=== PATIENT | male | born 1950 | race Caucasian/White ===

== ENCOUNTER 2022-09-29 14:44 | Inpatient (IN) | payer MEDICARE ==
[~2022-09-29] VITALS: Ht 175.3 cm; Wt 74.4 kg
--- NOTE | 2022-09-29 15:00 | NUR ---
[id number] HOME FOR COUGH AND CONGESTION W/ FEVER THAT STARTED THIS MORNING MOTRIN 600MG GIVEN PRIOR TO TRANSFER
--- NOTE | 2022-09-29 15:08 | NUR ---
established iv line left ac 20 g .
--- NOTE | 2022-09-29 15:10 | NUR ---
BLOOD DRAWN, SWAB FOR COVID19 AND RAPID INFLUENZA SENT TO LAB
[2022-09-29] MEDS ORDERED: PIPERACILLIN /TAZOBACTAM 3.375 G VIAL IV ONE (15:29)
[2022-09-29] MEDS ORDERED: DEXAMETHASONE SOD PHOSPHATE 10 MG/ML VIAL ONE (15:29)
[2022-09-29] MEDS ORDERED: VANCOMYCIN 1 GM VIAL ONE (15:29)
[2022-09-29] MEDS ORDERED: DEXAMETHASONE SOD PHOSPHATE 10 MG/ML VIAL IV ONE (15:30)
[2022-09-29] MEDS ORDERED: PIPERACILLIN /TAZOBACTAM 3.375 G in IV D5W 50 ML IV ONE (15:30)
[2022-09-29] MEDS ORDERED: VANCOMYCIN 1 GM in IV D5W 250 ML IV ONE (15:30)
[2022-09-29] MEDS ORDERED: IV NS 0.9% 1,000 ML BAG IV ONE (15:30)
--- NOTE | 2022-09-29 15:36 | NUR ---
BLOODSUGAR 121 AT THIS TIME NOTIFIED
[2022-09-29 15:44] LABS: BASOPHILS % (AUTO) 0.1 % (0.0-2.0); EOSINOPHILS % (AUTO) 0.3 % (0.0-6.0); HEMATOCRIT 39 % (39-51); LYMPHOCYTES # (AUTO) 0.5 K/uL (0.8-4.8); LYMPHOCYTES % (AUTO) 7.4 % (20.0-44.0); MEAN CORPUSCULAR HGB CONC 33 g/dl (31.0-36.0); MEAN CORPUSCULAR VOLUME 92 fL (80-96); MONOCYTES # (AUTO) 0.4 K/uL (0.1-1.30); MONOCYTES % (AUTO) 5.6 % (2.0-12.0); NEUTROPHILS # (AUTO) 6.2 K/uL (1.8-8.9); NEUTROPHILS % (AUTO) 86.6 % (43.0-81.0); PLATELET COUNT (AUTO) 188 K/uL (150-450); RED BLOOD CELL COUNT(AUTO) 4.23 MIL/uL (4.5-6.0); WHITE BLOOD COUNT (AUTO) 7.1 K/uL (4.3-11.0)
[2022-09-29 15:45] LABS: ABG BASE EXCESS -1.3 mmol/L; ABG PCO2 26.1 mmHg (35.0-45.0); ABG PH 7.511 (7.350-7.450); ABG PO2 72.4 mmHg (75.0-100.0); COHb 0.3 % (0.5-1.5); MetHb 0.3 % (0.0-1.5); O2Hb 94.3 % (94.0-97.0); SITE, ABG Right Radial
[2022-09-29] MEDS ORDERED: ACETAMINOPHEN ES 500 MG TABLET ONE (15:49)
[2022-09-29 15:53] LABS: CALCIUM, SERUM 8.5 mg/dL (8.5-10.1); CARBON DIOXIDE 24 mmol/L (21-32); CHLORIDE 102 mmol/L (98-107); CREATININE 1.2 mg/dL (0.6-1.3); GLUCOSE 114 mg/dL (74-106); POTASSIUM 4.1 mmol/L (3.5-5.1); SODIUM SERUM 139 mmol/L (136-145); UREA NITROGEN, BLOOD 12 mg/dL (7-18)
[2022-09-29] MEDS ORDERED: CARV25TA2 PO (15:54)
[2022-09-29] MEDS ORDERED: POTA99TA14 PO (15:54)
[2022-09-29] MEDS ORDERED: FURO40TA5 PO (15:54)
[2022-09-29] MEDS ORDERED: ARGI1POW13 PO (15:54)
[2022-09-29] MEDS ORDERED: UBID50TA3 PO (15:54)
[2022-09-29] MEDS ORDERED: THIA100T70 PO (15:54)
[2022-09-29] MEDS ORDERED: ACETAMINOPHEN ES 500 MG TABLET PO ONE (16:00)
[2022-09-29 16:07] LABS: ALANINE AMINOTRANSFERASE 26 U/L (12-78); ALBUMIN 3.7 g/dL (3.4-5.0); ALKALINE PHOSPHATASE 93 U/L (46-116); ASPARTATE AMINOTRANSFERASE 22 U/L (15-37); BILIRUBIN,DIRECT 0.6 mg/dL (0.0-0.2); BILIRUBIN,TOTAL 1.9 mg/dL (0.2-1.0); TOTAL PROTEIN, SERUM 6.6 g/dL (6.4-8.2)
--- NOTE | 2022-09-29 16:08 | NUR ---
MOVE SHEET SUBMITTED.
--- NOTE | 2022-09-29 16:10 | NUR ---
CRITICAL LAB LACTIC ACID 3.1 NOTIFIED
[2022-09-29] MEDS ORDERED: AZITHROMYCIN 500 MG in IV D5W 250 ML IV ONE (16:30)
--- NOTE | 2022-09-29 16:59 | NUR ---
[facility] CALLED DIRECTOR DIGITAL SALES PAGED.
[2022-09-29 17:56] LABS: BAND % (MANUAL) 8 % (0.0-5.0); LYMPHOCYTES % (MANUAL) 5 % (16-48); MONOCYTES % (MANUAL) 2 % (0-11.0); NEUTROPHILS % (MANUAL) 85 (42-76)
--- NOTE | 2022-09-29 18:14 | NUR ---
GOT BED 102
--- NOTE | 2022-09-29 18:38 | NUR ---
REPORT GIVEN TO ARIAS RN ROOM 102 FOR GABO
[2022-09-29] MEDS ORDERED: Z GUARD REMEDY 4 OZ OINT TP PRN (19:00)
[2022-09-29] MEDS ORDERED: MAG HYDROX/AL HYDROX/SIMETH 30 ML UDC PO PRN (19:00)
[2022-09-29] MEDS ORDERED: MAGNESIUM HYDROXIDE 30 ML UDC PO PRN (19:00)
[2022-09-29] MEDS ORDERED: ONDANSETRON HCL/PF 4 MG/2 ML VIAL IVP PRN (19:00)
[2022-09-29 19:07] LABS: BILIRUBIN,URINE NEGATIVE (NEGATIVE); COLOR,URINE YELLOW (YELLOW); LEUKOCYTE ESTERASE ,URINE NEGATIVE (NEGATIVE); NITRITE, URINE NEGATIVE (NEGATIVE); PH,URINE 6.5 (5.0-8.0); PROTEIN,URINE NEGATIVE (NEGATIVE); UGLUCOSE NEGATIVE (NEGATIVE); UROBILINOGEN,URINE 0.2 EU/dL (0.2)
--- NOTE | 2022-09-29 19:56 | NUR ---
RN OPENING NOTE PT A&OX4. RESPIRATIONS EVEN AND UNLABORED ON NC AT 2 LPM. HOB ELEVATED. SKIN IS WARM AND DRY. NO WOUNDS PRESENT. L AC 18G INTACT AND RUNNING NS TKO. PT EDUCATED ON PLAN OF CARE FOR TONIGHT. PT IS VEGAN AND HAS GLUTEN FREE DIET. ADJUSTMENTS MADE TO DIET ORDER PER PT REQUEST. NO ACUTE SIGNS OF DISTRESS. PT ABLE TO AMBULATE WITH STRONG STEADY GAIT. BED LOCKED AND AT LOWEST LEVEL WITH 2 RAILS UP. CALL LIGHT WITHIN REACH.
[2022-09-29 20:00] VITALS: BP 118/71
[2022-09-29] MEDS ORDERED: ENOXAPARIN SODIUM 40 MG/0.4 ML DISP.SYRIN SQ SCH (20:00)
[2022-09-29 20:17] LABS: BACTERIA,URINE None seen /HPF (None Seen); SQUAMOUS EPITHELIAL CELL,UR 0-2 /HPF (None Seen); WBC,URINE 0-2 /HPF (0-3)
[2022-09-29] MEDS: ZOSYN IVPB 3.375 G in IV D5W 50ml IV SCH (22:18)
[2022-09-30] VITALS: BP 122/82
[2022-09-30] MEDS: ZOSYN IVPB 3.375 G in IV D5W 50ml IV SCH (03:13)
[2022-09-30 04:00] VITALS: BP 102/55
[2022-09-30] MEDS: VANCOMYCIN 0.75 GM in IV D5W 250 ML IV SCH ×2 (04:14→16:08)
--- NOTE | 2022-09-30 05:40 | NUR ---
0932 THEE ARIAS MADE AWARE THAT PATIENT HAD 3 EPISODES OF COUGHING UP BLOODY SPUTUM WITH ORDERS MADE. PATIENT WAS MOVED TO [facility] FOR TB ISOLATION ORDERED.
--- NOTE | 2022-09-30 05:50 | NUR ---
RN NOTE SPUTUM CX COLLECTED AND PLACED IN FRIDGE.
[2022-09-30 06:01] LABS: BASOPHILS % (AUTO) 0.2 % (0.0-2.0); HEMATOCRIT 35 % (39-51); HEMOGLOBIN 11.5 g/dL (13.5-17.5); LYMPHOCYTES # (AUTO) 0.3 K/uL (0.8-4.8); MEAN CORPUSCULAR HGB CONC 33 g/dl (31.0-36.0); MEAN CORPUSCULAR VOLUME 93 fL (80-96); MONOCYTES # (AUTO) 0.4 K/uL (0.1-1.30); MONOCYTES % (AUTO) 5.7 % (2.0-12.0); NEUTROPHILS # (AUTO) 6.2 K/uL (1.8-8.9); NEUTROPHILS % (AUTO) 90.1 % (43.0-81.0); PLATELET COUNT (AUTO) 128 K/uL (150-450); RED BLOOD CELL COUNT(AUTO) 3.74 MIL/uL (4.5-6.0); WHITE BLOOD COUNT (AUTO) 6.9 K/uL (4.3-11.0)
[2022-09-30 06:11] LABS: CALCIUM, SERUM 8.4 mg/dL (8.5-10.1); CREATININE 1.1 mg/dL (0.6-1.3); MAGNESIUM 2.2 mg/dL (1.8-2.4); PHOSPHORUS 3.2 mg/dL (2.5-4.9); POTASSIUM 3.7 mmol/L (3.5-5.1)
--- NOTE | 2022-09-30 07:02 | NUR ---
RN CLOSING NOTE PT A&OX4. SKIN IS WARM AND DRY. RR EVEN AND UNLABORED ON 2 LPM NC. LAC 18 G INTACT AND SL. NO ACUTE SIGNS OF DISTRESS. ANSWERED PT'S QUESTIONS REGARDING PNA AND TB. PT VERBALIZED UNDERSTANDING AND HAS NO OTHER NEEDS AT THIS TIME. PT IS IN ROOM 101 AND AIRBORNE ISOLATION PRECAUTIONS IN PLACE. PT ABLE TO AMBULATE TO RESTROOM WITHOUT ASSISTANCE WITH STRONG STEADY GAIT. BED LOCKED AND AT LOWEST LEVEL AND CALL LIGHT WITHIN REACH.
--- NOTE | 2022-09-30 07:25 | NUR ---
ECONOMIC RESEARCH ASSISTANT OPENING NOTE RECEIVED PT A&OX4. ABLE TO MAKE NEEDS KNOWN, NOT IN ANY FORM OF DISTRESS, ON NC AT 2 LPM. HOB ELEVATED, NO S/SX OF RESPIRATORY DISTRESS, NO COMPLAINTS OF PAIN NOR DISCOMFORT. IV ACCESS ON LAC G#18, SALINE LOCKED, PATENT, FLUSHING WELL. PATIENT REPORTS THAT THE COUGHING OF BLOOD HAS STOPPED FOR NOW. SAFETY MEASURES IN PLACE: BED LOWEST AND LOCKED POSITION, 2 SIDE RAILS UP, CALL LIGHT AND TRAY TABLE WITHIN REACH. WILL CONTINUE TO MONITOR. Addendum: 09/30/22 at 1217 by IVANNA JIN RN TELEMONITORING SHOWS - SINUS RHYTHM AT 84 BPM
[2022-09-30 08:00] VITALS: BP 108/69
[2022-09-30] MEDS: PANTOPRAZOLE 40 MG TABLET.DR PO SCH (08:45)
[2022-09-30] MEDS: ACETAMINOPHEN 325 MG TABLET PO PRN (09:04)
[2022-09-30] MEDS: LEVOFLOXACIN 750 MG /D5W 150ML 150 ML IV SCH (11:16)
[2022-09-30 12:00] VITALS: BP 104/69
[2022-09-30] MEDS: PIPERACILLIN /TAZOBACTAM 3.375 G in IV D5W 100 ML IV SCH ×2 (12:54→21:39)
[2022-09-30 16:00] VITALS: BP 108/69
--- NOTE | 2022-09-30 17:04 | NUR ---
RN NOTES - MEDICATION [facility] CALLED TO ASK MD TO RECONCILE MEDS, MESSAGED AMANDA TAPIA
--- NOTE | 2022-09-30 19:25 | NUR ---
GAS SINGER CLOSING NOTES PT A&OX4. ABLE TO MAKE NEEDS KNOWN, NOT IN ANY FORM OF DISTRESS, STILL ON NC AT 2 LPM. DENIES PAIN NOR DISCOMFORT. IV ACCESS ON LAC G#18, SALINE LOCKED, PATENT, FLUSHING WELL. TELEMONITOR SHOWING AFIB CONTROLLED AT 90 BPM. ALL NEEDS MET, ALL DUE MEDS GIVEN. SAFETY MEASURES MAINTAINED: BED LOWEST AND LOCKED POSITION, 2 SIDE RAILS UP, CALL LIGHT AND TRAY TABLE WITHIN REACH. ENDORSED TO THE SEWING MACHINE MECHANIC NURSE.
--- NOTE | 2022-09-30 19:30 | NUR ---
RECEIVED PT A&OX4. ON NC AT 2 LPM. HOB ELEVATED, NO S/SX OF RESPIRATORY DISTRESS, NO COMPLAINTS OF PAIN NOR DISCOMFORT. IV ACCESS ON LAC G#18, SALINE LOCKED. URINAL AT BEDSIDE. SAFETY MEASURES IN PLACE. WILL CONTINUE PLAN OF CARE.
[2022-09-30 20:00] VITALS: BP 108/69
[2022-10-01] VITALS: BP 117/76
--- NOTE | 2022-10-01 00:58 | NUR ---
WORK FORCE ADVISOR NOTE PT NOTED DESATING ON 02 6 L VIA SIMPLE MASK IN HIGH TREJO POSITION. CHANGED TO NRB MASK AT 15 L O2 SAT CAME BACK UP TO 97%. INFORMED THEE ARIAS AND RECEIVED NEW ORDER, ORDER NOTED AND CARRIED OUT. NURSE MAGUIRE ALSO INFORMED TO FOLLOW UP.
--- NOTE | 2022-10-01 02:00 | NUR ---
MD and Charge nurse was notified that the pt is asking for his home meds to be reconciled. acknowledged. Will endorse to morning shift nurse.
[2022-10-01] MEDS: ZOLPIDEM TARTRATE 5 MG TABLET PO PRN ×2 (02:16→21:11)
[2022-10-01] MEDS: VANCOMYCIN 0.75 GM in IV D5W 250 ML IV SCH (03:16)
[2022-10-01 04:00] VITALS: BP 109/71
[2022-10-01] MEDS: PIPERACILLIN /TAZOBACTAM 3.375 G in IV D5W 100 ML IV SCH ×2 (04:05→13:32)
--- NOTE | 2022-10-01 06:24 | NUR ---
Home meds requested by pt to be reconciled needs to be reviewed by Cardio specialist: Carvedilol 25mg, Furosemide 40 mg, Potassium gluconate 99mg. Will endorse to morning shift.
[2022-10-01 06:29] LABS: BASOPHILS % (AUTO) 0.1 % (0.0-2.0); HEMATOCRIT 33 % (39-51); HEMOGLOBIN 10.8 g/dL (13.5-17.5); LYMPHOCYTES # (AUTO) 0.5 K/uL (0.8-4.8); MEAN CORPUSCULAR HGB CONC 33 g/dl (31.0-36.0); MEAN CORPUSCULAR VOLUME 93 fL (80-96); MONOCYTES # (AUTO) 0.7 K/uL (0.1-1.30); MONOCYTES % (AUTO) 7.9 % (2.0-12.0); NEUTROPHILS # (AUTO) 7.4 K/uL (1.8-8.9); PLATELET COUNT (AUTO) 140 K/uL (150-450); RED BLOOD CELL COUNT(AUTO) 3.51 MIL/uL (4.5-6.0); WHITE BLOOD COUNT (AUTO) 8.6 K/uL (4.3-11.0)
--- NOTE | 2022-10-01 06:30 | NUR ---
PT A&OX4. ON NC AT 2 LPM. HOB ELEVATED, NO S/SX OF RESPIRATORY DISTRESS, NO COMPLAINTS OF PAIN NOR DISCOMFORT. IV ACCESS ON LAC G#18, SALINE LOCKED. URINAL AT BEDSIDE. DUE MEDS GIVEN. SAFETY MEASURES MAINTAINED. WILL ENDORSE TO NEXT NURSE ON DUTY FOR CONTINUITY OF CARE.
[2022-10-01 06:50] LABS: CALCIUM, SERUM 8.2 mg/dL (8.5-10.1); CARBON DIOXIDE 24 mmol/L (21-32); CHLORIDE 106 mmol/L (98-107); CREATININE 1.2 mg/dL (0.6-1.3); GLUCOSE 154 mg/dL (74-106); MAGNESIUM 2.2 mg/dL (1.8-2.4); PHOSPHORUS 2.8 mg/dL (2.5-4.9); POTASSIUM 3.6 mmol/L (3.5-5.1); SODIUM SERUM 139 mmol/L (136-145); UREA NITROGEN, BLOOD 21 mg/dL (7-18)
--- NOTE | 2022-10-01 07:30 | NUR ---
RN Opening Note Patient AOx4 able to express his concerns. Patient reports and shows no signs of distress or discomfort. IV line with no signs of infiltration. Patient made aware of plan of care and verbalized understanding. Will monitor throughout shift, administer medications as scheduled and provide care as needed. All safety precautions taken, call light and table within reach, bed at lowest position.
[2022-10-01 08:00] VITALS: BP 119/81
[2022-10-01] MEDS: PANTOPRAZOLE 40 MG TABLET.DR PO SCH (08:18)
[2022-10-01] MEDS: THIAMINE HCL 100 MG TABLET PO SCH (08:18)
[2022-10-01] MEDS ORDERED: UBIDECARENONE 100 MG PO SCH (09:00)
[2022-10-01] MEDS ORDERED: Medication Not On Formulary EA (Arginine/Ascorbate Sod/Vite AC (Arginaid Powder) 1 EACH) PO SCH (09:00)
[2022-10-01] MEDS: LEVOFLOXACIN 750 MG /D5W 150ML 150 ML IV SCH (11:13)
[2022-10-01 12:00] VITALS: BP 129/78
[2022-10-01] MEDS: ACETAMINOPHEN 325 MG TABLET PO PRN ×2 (13:40→21:11)
[2022-10-01] MEDS: FUROSEMIDE 40 MG TABLET PO SCH (14:22)
[2022-10-01] MEDS: CARVEDILOL 12.5 MG TABLET PO SCH ×2 (14:22→16:16)
[2022-10-01 16:00] VITALS: BP 115/73
[2022-10-01] MEDS ORDERED: VANCOMYCIN 0.75 GM in IV NS 0.9% 250 ML IV SCH (16:00)
[2022-10-01] MEDS: VANCOMYCIN 1 GM in IV D5W 250 ML IV SCH (16:15)
--- NOTE | 2022-10-01 18:14 | NUR ---
RN Closing Note Patient AOx4 able to express his own concerns. Patient remained safe throughout shift, all safety precautions taken. Medications administered as prescribed and care provided as needed. Educated patient on importance of monitoring fluid intake. Patient states he has holistic physicians who he usually sees for out patient services. All safety precautions taken, call light and table within reach, bed at lowest position. Will endorse to night nurse for continuity of care.
[2022-10-01] MEDS: PIPERACILLIN /TAZOBACTAM 3.375 G in IV NS 0.9% 100 ML IV SCH (20:50)
[2022-10-01 22:00] VITALS: BP 104/50
[2022-10-02 00:29] VITALS: BP 113/65
[2022-10-02] MEDS: VANCOMYCIN 1 GM in IV D5W 250 ML IV SCH ×2 (03:05→17:35)
[2022-10-02] MEDS: PIPERACILLIN /TAZOBACTAM 3.375 G in IV NS 0.9% 100 ML IV SCH ×3 (04:37→21:00)
[2022-10-02 05:12] VITALS: BP 112/53
[2022-10-02 06:51] LABS: BASOPHILS % (AUTO) 0.2 % (0.0-2.0); EOSINOPHILS % (AUTO) 0.4 % (0.0-6.0); HEMATOCRIT 31 % (39-51); HEMOGLOBIN 10.5 g/dL (13.5-17.5); LYMPHOCYTES # (AUTO) 0.7 K/uL (0.8-4.8); LYMPHOCYTES % (AUTO) 11.5 % (20.0-44.0); MEAN CORPUSCULAR HGB CONC 34 g/dl (31.0-36.0); MEAN CORPUSCULAR VOLUME 92 fL (80-96); MONOCYTES # (AUTO) 0.5 K/uL (0.1-1.30); MONOCYTES % (AUTO) 8.5 % (2.0-12.0); NEUTROPHILS # (AUTO) 5.1 K/uL (1.8-8.9); NEUTROPHILS % (AUTO) 79.4 % (43.0-81.0); PLATELET COUNT (AUTO) 140 K/uL (150-450); RED BLOOD CELL COUNT(AUTO) 3.39 MIL/uL (4.5-6.0); WHITE BLOOD COUNT (AUTO) 6.5 K/uL (4.3-11.0)
[2022-10-02 07:08] LABS: CALCIUM, SERUM 8.1 mg/dL (8.5-10.1); CREATININE 1.1 mg/dL (0.6-1.3); PHOSPHORUS 3.3 mg/dL (2.5-4.9); POTASSIUM 3.3 mmol/L (3.5-5.1)
[2022-10-02 08:00] VITALS: BP 120/74
[2022-10-02] MEDS: PANTOPRAZOLE 40 MG TABLET.DR PO SCH (08:07)
[2022-10-02] MEDS: THIAMINE HCL 100 MG TABLET PO SCH (08:07)
[2022-10-02] MEDS: CARVEDILOL 12.5 MG TABLET PO SCH ×2 (08:07→17:35)
[2022-10-02] MEDS: FUROSEMIDE 40 MG TABLET PO SCH (08:07)
[2022-10-02] MEDS: ACETAMINOPHEN 325 MG TABLET PO PRN (08:31)
[2022-10-02] MEDS ORDERED: POTASSIUM CHLORIDE 20 MEQ TAB.PRT.SR PO ONE (09:00)
[2022-10-02] MEDS: SPIRONOLACTONE 25 MG TABLET PO SCH (09:11)
[2022-10-02] MEDS: LEVOFLOXACIN 750 MG /D5W 150ML 150 ML IV SCH (11:46)
[2022-10-02 12:00] VITALS: BP 108/63
[2022-10-02] MEDS ORDERED: SACU1TAB7 PO (12:54)
[2022-10-02] MEDS ORDERED: LEVO250T59 PO (12:54)
[2022-10-02] MEDS ORDERED: SPIR25TA6 PO (12:54)
[2022-10-02 16:00] VITALS: BP 108/71
--- NOTE | 2022-10-02 19:05 | NUR ---
CONDUCTOR FREIGHT OPENING NOTE RECEIVED PT SITTING IN BED, ALERT AND ORIENTED; A O X 4. PATIENT IS ON 3 LPM OXYGEN VIA NC, O2 SAT IS 98%. TOLERATED WELL; NO S/S OF SOB OR DISTRESS. PATIENT DENIES OF HAVING PAIN. IV ACCESS IS ON L AC #18G, SALINE LOCKED, PATENT, FLUSHING WITH 10 CC NS. PATENT AND INTACT. PATIENT HAS DRY COUGH AND PRN MEDICATION ORDERED BY THE MD AND WAITING FOR PHARMACY FOR APPROVAL. PATIENT IS ON EXTERNAL TELE MONITOR, SHOWING THE RHYTHM IS SR AT 90S AT REST AND 120S WHEN HE WALKS AROUND. SAFETY MEASURES IN PLACE: BED IN LOWEST AND LOCKED POSITION; SIDE RAILS UP X 2; CALL LIGHT AND TRAY TABLE WITHIN REACH. WILL CONTINUE MONITORING THE PATIENT AND PROVIDE THE CARE PATIENT NEEDS.
--- NOTE | 2022-10-02 19:17 | NUR ---
RN Closing Note Patient AOx4 able to make needs known. Patient breathing on 3L nc o2 sat of 98%. Tele reading ST with HR of 108. All safety precautions in place, call light and table within reach, bed at lowest position. Will endorse to night nurse for continuity of care.
[2022-10-02 20:00] VITALS: BP 96/58
[2022-10-02] MEDS: BENZONATATE 100 MG CAPSULE PO PRN (21:03)
--- NOTE | 2022-10-02 21:30 | NUR ---
MEDICAL LABORATORY TECHNICIANS NOTE PATIENT IS HAVING DRY COUGH; PRN MEDICATION FOR COUGH WAS GIVEN TO THE PATIENT ORALLY PER MD ORDER.
[2022-10-02] MEDS: ZOLPIDEM TARTRATE 5 MG TABLET PO PRN (22:00)
--- NOTE | 2022-10-02 22:10 | NUR ---
AIRCRAFT STRUCTURAL FITTER NOTE PATIENT STATED THAT HE NEEDED THE SLEEPING PILLS SO HE WAS ABLE TO GO TO SLEEP. PRN MEDICATION AMBIEN WAS GIVEN T9O THE PATIENT ORALLY PER MD ORDER.
[2022-10-03] VITALS: BP 108/69
[2022-10-03] MEDS: VANCOMYCIN 1 GM in IV D5W 250 ML IV SCH ×2 (03:45→16:12)
[2022-10-03 04:00] VITALS: BP 114/77
[2022-10-03] MEDS: PIPERACILLIN /TAZOBACTAM 3.375 G in IV NS 0.9% 100 ML IV SCH ×3 (04:54→20:47)
--- NOTE | 2022-10-03 07:39 | NUR ---
AUTOMOBILE ASSEMBLY SUPERVISOR CLOSING NOTE PT IS SLEEPING IN BED, EASILY BEING AROUSED. HE IS ALERT AND ORIENTED; A O X 4. PATIENT IS ON 3 LPM OXYGEN VIA NC, O2 SAT IS 98%. TOLERATED WELL; NO S/S OF SOB OR DISTRESS. PATIENT DENIES OF HAVING PAIN. IV ACCESS IS ON L AC #18G, SALINE LOCKED, PATENT AND INTACT. THROUGH THE SHIFT, PRN MEDICATION GIVEN TO THE PATIENT PER PATIENT'S REQUEST, CONDITION AND MD ORDERS. PATIENT IS ON EXTERNAL TELE MONITOR, SHOWING THE RHYTHM IS SR AT 90S AT REST AND 120S WHEN HE WALKS AROUND. SAFETY MEASURES IN PLACE: BED IN LOWEST AND LOCKED POSITION; SIDE RAILS UP X 2; CALL LIGHT AND TRAY TABLE WITHIN REACH. WILL ENDORSE THE NEXT SHIFT NURSE FOR CONTINUING PATIENT CARE.
[2022-10-03 08:00] VITALS: BP 118/59
[2022-10-03 08:09] LABS: CALCIUM, SERUM 8.9 mg/dL (8.5-10.1); CARBON DIOXIDE 26 mmol/L (21-32); CHLORIDE 103 mmol/L (98-107); CREATININE 1.1 mg/dL (0.6-1.3); GLUCOSE 82 mg/dL (74-106); POTASSIUM 3.3 mmol/L (3.5-5.1); SODIUM SERUM 141 mmol/L (136-145); UREA NITROGEN, BLOOD 16 mg/dL (7-18)
[2022-10-03] MEDS: SPIRONOLACTONE 25 MG TABLET PO SCH (09:50)
[2022-10-03] MEDS: THIAMINE HCL 100 MG TABLET PO SCH (09:50)
[2022-10-03] MEDS: FUROSEMIDE 40 MG TABLET PO SCH (09:50)
[2022-10-03] MEDS: LEVOFLOXACIN (250MG) 250 MG TABLET PO SCH (09:50)
[2022-10-03] MEDS: CARVEDILOL 12.5 MG TABLET PO SCH ×2 (09:52→16:13)
[2022-10-03] MEDS: PANTOPRAZOLE 40 MG TABLET.DR PO SCH (09:57)
[2022-10-03] MEDS ORDERED: POTASSIUM CHLORIDE 20 MEQ TAB.PRT.SR PO SCH (11:00)
[2022-10-03 12:00] VITALS: BP 98/59
[2022-10-03 16:00] VITALS: BP 105/68
[2022-10-03 20:00] VITALS: BP 127/75
[2022-10-03] MEDS: BENZONATATE 100 MG CAPSULE PO PRN (20:05)
--- NOTE | 2022-10-03 20:18 | NUR ---
received in bed alert and oriented X4 smiling and joking good eye contact
[2022-10-03 21:06] LABS: *MYCOPLASMA PNEUMONIAE IgG 154 U/mL (0-99); *MYCOPLASMA PNEUMONIAE IgM <770 U/mL (0-769)
[2022-10-03] MEDS: ZOLPIDEM TARTRATE 5 MG TABLET PO PRN (21:49)
[2022-10-04] VITALS: BP 126/75
[2022-10-04] MEDS: VANCOMYCIN 1 GM in IV D5W 250 ML IV SCH ×2 (03:46→16:45)
[2022-10-04] MEDS: BENZONATATE 100 MG CAPSULE PO PRN (03:59)
[2022-10-04 04:00] VITALS: BP 126/75
--- NOTE | 2022-10-04 04:14 | NUR ---
CLOSING notes; ALERT AND ORIENTATED x4 ENJOYS CONVERSATION AFEBRILE THIS 12 HOURS CALL LIGHT WITHIN HIS REACH MADE AWARE TO CALL NURSE WHEN GETTING OOB NONPRODUCTIVE COUGH TESSILONE PEARLS MEDICATION GIVEN FOR COUGH AND EFFECTIVE
[2022-10-04] MEDS: PIPERACILLIN /TAZOBACTAM 3.375 G in IV NS 0.9% 100 ML IV SCH ×3 (05:20→20:05)
[2022-10-04 08:00] VITALS: BP 119/77
[2022-10-04 08:41] LABS: CALCIUM, SERUM 8.5 mg/dL (8.5-10.1); POTASSIUM 3.7 mmol/L (3.5-5.1)
[2022-10-04] MEDS: LEVOFLOXACIN (250MG) 250 MG TABLET PO SCH (08:45)
[2022-10-04] MEDS: THIAMINE HCL 100 MG TABLET PO SCH (08:45)
[2022-10-04] MEDS: PANTOPRAZOLE 40 MG TABLET.DR PO SCH (08:45)
[2022-10-04] MEDS: CARVEDILOL 12.5 MG TABLET PO SCH ×2 (08:46→16:44)
[2022-10-04] MEDS: FUROSEMIDE 40 MG TABLET PO SCH (08:46)
[2022-10-04] MEDS: SPIRONOLACTONE 25 MG TABLET PO SCH (08:46)
[2022-10-04 12:00] VITALS: BP 115/75
[2022-10-04 16:00] VITALS: BP 120/80
--- NOTE | 2022-10-04 19:30 | NUR ---
OPTO MECHANICAL ENGINEER OPENING NOTE RECEIVED PATIENT AWAKE IN BED, PATIENT IS ALERT AND ORIENTED TIMES 4. PATIENT IS ON ROOM AIR ANS TOLERATING WELL. O2 SAT IS 96%. NO S/S OF SOB OR DISTRESS NOTED. NO PAIN NOTED. IV ACCESS ON RIGHT WRIST #22 G, INTACT AND SALINE LOCKED, PATENT AND INTACT. PATENT AND INTACT. PATIENT IS ON EXTERNAL TELE MONITOR READING CONTROLLED AFIB. ALL SAFETY MEASURES IN PLACE: BED IN LOWEST AND LOCKED POSITION; SIDE RAILS UP X 2; CALL LIGHT AND TABLE IN EASY REACH. WILL CONTINUE TO MONITOR CLOSELY.
[2022-10-04 20:00] VITALS: BP 116/22
[2022-10-04] MEDS: ZOLPIDEM TARTRATE 5 MG TABLET PO PRN (21:39)
[2022-10-05 00:45] VITALS: BP 121/75
[2022-10-05] MEDS: VANCOMYCIN 1 GM in IV D5W 250 ML IV SCH ×2 (03:15→16:21)
[2022-10-05] MEDS: PIPERACILLIN /TAZOBACTAM 3.375 G in IV NS 0.9% 100 ML IV SCH ×3 (04:38→21:06)
[2022-10-05 04:39] VITALS: BP 117/68
[2022-10-05 06:00] LABS: CALCIUM, SERUM 8.5 mg/dL (8.5-10.1); POTASSIUM 3.6 mmol/L (3.5-5.1)
--- NOTE | 2022-10-05 07:07 | NUR ---
AIR DUCT MECHANIC CLOSING NOTE PATIENT AWAKE IN BED, PATIENT IS ALERT AND ORIENTED TIMES 4. PATIENT IS ON ROOM AIR ANS TOLERATING WELL. O2 SAT IS 97%. NO S/S OF SOB OR DISTRESS NOTED. NO PAIN NOTED. IV ACCESS ON RIGHT WRIST #22 G, INTACT AND SALINE LOCKED, PATENT AND INTACT. PATIENT IS ON EXTERNAL TELE MONITOR READING CONTROLLED AFIB. ALL DUE MEDS GIVEN ORDERED.ALL SAFETY MEASURES IN PLACE: BED IN LOWEST AND LOCKED POSITION; SIDE RAILS UP X 2; CALL LIGHT AND TABLE IN EASY REACH. WILL ENDORSE FOR GABO.
--- NOTE | 2022-10-05 07:15 | NUR ---
AM TELE OPENING NOTES: RECEIVED PATIENT IN BED, AWAKE, ALERT, ORIENTED X 4. PATIENT IS ON RA WITH NO REPARATORY DISTRESS NOTED. BREATHING EVEN AND UNLABORED. ON OXYGEN SATURATION OF 98%. ON A-FIB WITH THE HR OF 99 PER TELE MONITOR. PATIENT WITH NO C/O CHEST PAIN OR DISCOMFORT AT THIS TIME. IV ACCESS ON RIGHT HAND IS INTACT, PATENT, FLUSHES WELL, NO S/S INFILTRATION NOTED. ALL SAFETY MEASURES IN PLACE. CALL LIGHT WITHIN REACH. BED LOCKED AND IN LOWEST POSITION. WILL CONTINUE TO MONITOR PATIENT THROUGHOUT SHIFT.
[2022-10-05] MEDS: PANTOPRAZOLE 40 MG TABLET.DR PO SCH (07:28)
[2022-10-05 08:00] VITALS: BP 110/77
[2022-10-05] MEDS: SPIRONOLACTONE 25 MG TABLET PO SCH (08:18)
[2022-10-05] MEDS: THIAMINE HCL 100 MG TABLET PO SCH (08:18)
[2022-10-05] MEDS: LEVOFLOXACIN (250MG) 250 MG TABLET PO SCH (08:19)
[2022-10-05] MEDS: FUROSEMIDE 40 MG TABLET PO SCH (08:19)
[2022-10-05] MEDS: CARVEDILOL 12.5 MG TABLET PO SCH ×2 (08:19→16:24)
[2022-10-05 12:00] VITALS: BP 105/76
[2022-10-05 16:00] VITALS: BP 110/73
--- NOTE | 2022-10-05 16:18 | NUR ---
SPOKE WITH DEZ AT THE PHARMACY AND SAID TO GIVE VANCO ORDERED, TROUGH WAS 15 ON 10/03/22
--- NOTE | 2022-10-05 18:49 | NUR ---
BELL VALET CLOSING NOTES: PATIENT IN BED, AWAKE, ALERT, ORIENTED X 4. NO RESPIRATORY DISTRESS NOTED THROUGHOUT SHIFT. NO SOB NOTED AT THIS TIME. ON RA WITH OXYGEN SATURATION OF 97%. ON A FIB WITH HR OF 103 ON TELE MONITOR. NO C/O CHEST PAIN OR DISCOMFORT NOTED THROUGHOUT SHIFT. IV LINE INTACT ON LEFT FOREARM, PATENT, FLUSHES WELL, NO S/S INFILTRATION. ALL NEEDS MET AND ANTICIPATED. ALL SAFETY MEASURES IMPLEMENTED. WILL ENDORSE TO NEXT SHIFT NURSE FOR CONTINUITY OF CARE.
--- NOTE | 2022-10-05 19:54 | NUR ---
noc rn opening note received patient doing ADL's with steady gait. no s/s of apparent distress on room air. denies pain at this time. patient is a/ox4. l.fa #20g on saline lock. needs attended for now. patient reading a-fib in controlled rate. call light within reach. safety in place. will continue with the plan of care for patient.
[2022-10-05 20:00] VITALS: BP 121/57
[2022-10-05] MEDS: BENZONATATE 100 MG CAPSULE PO PRN (21:09)
[2022-10-05] MEDS: ZOLPIDEM TARTRATE 5 MG TABLET PO PRN (21:50)
--- NOTE | 2022-10-05 22:00 | NUR ---
noc rn note patient requested for ambien, given ambien 5mg as ordered PRN.
[2022-10-06] VITALS: BP 95/53
[2022-10-06] MEDS: VANCOMYCIN 1 GM in IV D5W 250 ML IV SCH (03:59)
[2022-10-06 04:00] VITALS: BP 90/55
[2022-10-06] MEDS: PIPERACILLIN /TAZOBACTAM 3.375 G in IV NS 0.9% 100 ML IV SCH ×3 (05:13→20:06)
[2022-10-06 06:41] LABS: CALCIUM, SERUM 8.5 mg/dL (8.5-10.1); CREATININE 1.2 mg/dL (0.6-1.3); POTASSIUM 3.6 mmol/L (3.5-5.1)
--- NOTE | 2022-10-06 06:50 | NUR ---
noc rn note patient in bed with eyes closed, easy to arouse. no s/s of apparent distress on 3lpm of o2 via nc at this time. no c/o pain at this time. reading a-fib controlled. lt. fa running IV Zosyn @25mls/hr still. all needs attended. all scheduled medication administered. safety kept in place the whole shift. will endorse to morning shift RN for continuity of patient care.
[2022-10-06] MEDS: THIAMINE HCL 100 MG TABLET PO SCH (07:42)
[2022-10-06] MEDS: LEVOFLOXACIN (250MG) 250 MG TABLET PO SCH (07:42)
[2022-10-06] MEDS: SPIRONOLACTONE 25 MG TABLET PO SCH (07:43)
[2022-10-06] MEDS: FUROSEMIDE 40 MG TABLET PO SCH (07:43)
[2022-10-06] MEDS: PANTOPRAZOLE 40 MG TABLET.DR PO SCH (07:43)
[2022-10-06] MEDS: CARVEDILOL 12.5 MG TABLET PO SCH ×2 (07:46→16:22)
[2022-10-06 08:00] VITALS: BP 98/65
[2022-10-06 12:00] VITALS: BP 99/63
[2022-10-06 16:00] VITALS: BP 105/68
--- NOTE | 2022-10-06 16:10 | NUR ---
CALLED PHARMACY REGARDING VANCO TROUGH LEVEL IS 25, PHARMACY WILL CHANGE THE DOSE.
[2022-10-06] MEDS: VANCOMYCIN HCL 0.75 GM in IV D5W 250 ML IV SCH (17:49)
--- NOTE | 2022-10-06 18:38 | NUR ---
PATIENT IS AWAKE, ALERT, ORIENTED X3, NO COMPLAINT OF PAIN, NO SIGNS OF IN DISTRESS, VIATL SIGNS ARE STABLE, UNLABORED BREATHING IN ROOM AIR, BED IN LOW POSITION, CALL LIGHT WITHIN REACH.
--- NOTE | 2022-10-06 19:30 | NUR ---
TELEPHONE SALES AGENT OPENING NOTES - RECEIVED PATIENT SITTING ON BED. A/O X4. BREATHING EVEN AND NON-LABORED ON ROOM AIR. NOT IN APPARENT DISTRESS. NO C/O PAIN OR DISCOMFORT AT THIS TIME. ON TELE MONITOR READING AFIB AT 97 BPM. HAS LEFT FOREARM IV ACCESS #20G AND SALINE LOCKED. NO S/S OF INFILTRATION NOTED. SAFETY PRECAUTIONS IN PLACE: BED LOCKED AND IN LOW POSITION, SIDE RAILS UP X2, CALL LIGHT WITHIN REACH. WILL CONTINUE PLAN OF CARE.
[2022-10-06 20:00] VITALS: BP 113/69
[2022-10-06] MEDS: BENZONATATE 100 MG CAPSULE PO PRN (21:39)
[2022-10-06] MEDS: ACETAMINOPHEN 325 MG TABLET PO PRN (21:39)
[2022-10-06] MEDS: ZOLPIDEM TARTRATE 5 MG TABLET PO PRN (21:39)
--- NOTE | 2022-10-06 21:44 | NUR ---
PATIENT REQUESTED TYLENOL FOR MILD HEADACHE, GAVE PRN TYLENOL 650MG. CURRENTLY ON O2 AT 2LPM FOR SUPPORT. ALSO REQUESTED FOR TESSALON 100MG AND AMBIEN 5MG. MEDS GIVEN AND TOLERATED WELL.
[2022-10-07] VITALS: BP 93/58
[2022-10-07 04:00] VITALS: BP 99/63
[2022-10-07] MEDS: VANCOMYCIN HCL 0.75 GM in IV D5W 250 ML IV SCH (04:00)
[2022-10-07] MEDS: PIPERACILLIN /TAZOBACTAM 3.375 G in IV NS 0.9% 100 ML IV SCH ×2 (05:08→12:05)
--- NOTE | 2022-10-07 06:51 | NUR ---
BRAND LEAD CLOSING NOTES - PATIENT SLEEPING IN BED, EASY TO AROUSE. NO SOB OR NOTED. SATURATING AT 96% IN ROOM AIR. NOT IN CARDIAC OR RESPIRATORY DISTRESS. DENIES PAIN AT THIS TIME. AFEBRILE. ON TELE MONITOR READING AFIB AT 78 BPM. LEFT FOREARM IV ACCESS #20G INTACT, PATENT AND FLUSHING. ALL DUE MEDS GIVEN AND NEEDS ATTENDED. AMBULATORY WITH FWW. SAFETY PRECAUTIONS MAINTAINED. WILL ENDORSE TO NEXT SHIFT FOR CONTINUITY OF CARE.
--- NOTE | 2022-10-07 07:13 | NUR ---
AM TELE OPENING NOTES: RECEIVED PATIENT SITTING ON THE SIDE OF HIS BED, AWAKE, ALERT, ORIENTED X 4. PATIENT WITH NO SYMPTOMS OF RESPIRATORY DISTRESS. BREATHING EVEN AND UNLABORED. ON RA WITH OXYGEN SATURATION OF 96%. ON A-FIB WITH THE HR OF 49 PER TELE MONITOR. IV ACCESS ON RIGHT HAND IS INTACT, PATENT, FLUSHES WELL, NO S/S INFILTRATION NOTED. PATIENT HAS NO NO C/O CHEST PAIN OR DISCOMFORT AT THIS TIME. ALL SAFETY MEASURES IMPLEMENTED. BED LOCKED AND IN LOWEST POSITION. CALL LIGHT WITHIN REACH. WILL CONTINUE TO MONITOR PATIENT THROUGHOUT SHIFT.
[2022-10-07] MEDS: PANTOPRAZOLE 40 MG TABLET.DR PO SCH (07:31)
[2022-10-07 08:00] VITALS: BP 100/78
[2022-10-07 08:23] LABS: CALCIUM, SERUM 8.7 mg/dL (8.5-10.1); CREATININE 1.2 mg/dL (0.6-1.3); POTASSIUM 3.7 mmol/L (3.5-5.1)
[2022-10-07] MEDS: SPIRONOLACTONE 25 MG TABLET PO SCH (08:36)
[2022-10-07] MEDS: THIAMINE HCL 100 MG TABLET PO SCH (08:36)
[2022-10-07] MEDS: FUROSEMIDE 40 MG TABLET PO SCH (08:36)
[2022-10-07] MEDS: LEVOFLOXACIN (250MG) 250 MG TABLET PO SCH (08:37)
[2022-10-07] MEDS: CARVEDILOL 12.5 MG TABLET PO SCH (08:37)
[2022-10-07 12:00] VITALS: BP 104/69
[2022-10-07] MEDS ORDERED: LEVO750T46 PO (13:40)
[2022-10-07] MEDS ORDERED: SACU1TAB7 PO (13:40)
[2022-10-07] MEDS ORDERED: SPIR25TA6 PO (13:40)
[2022-10-07 16:00] VITALS: BP 119/70
--- NOTE | 2022-10-07 16:10 | NUR ---
PATIENT WAS GIVEN DISCHARGE PAPERWORK ORDERED BY MD. IV LINE TAKEN OUT WITH HUB INTACT, PATIENT IS A-FIB ON TELE MONITOR WITH HR OF 91. ARM BAND WAS ALSO REMOVED. TELE MONITOR WAS ALSO TAKEN OFF THE PATIENT. PATIENT WAS TAKEN TO THE LOBBY VIA WHEELCHAIR TO BE DISCHARGED. PATIENT'S SETH WAS WAITING IN THE CAR. PATIENT LEFT IN NO ACUTE DISTRESS NOTED. ALL DISCHARGE INSTRUCTIONS WERE UNDERSTOOD BY THE PATIENT.
== END 2022-10-07 16:14 | disposition home or self-care (01) | DRG 871 ==
LOC: ER 14:47 → TELE1 18:25
PROVIDERS: ADMIT Student in an Organized Health Care Education/Training Program; ATTEND Nurse Practitioner Acute Care
DX: A41.9 Sepsis, unspecified organism (principal); J18.9 Pneumonia, unspecified organism; J96.01 Acute respiratory failure with hypoxia; R04.2 Hemoptysis; E87.20 Acidosis, unspecified; Z20.822 Contact with and (suspected) exposure to COVID-19; I11.0 Hypertensive heart disease with heart failure; I50.9 Heart failure, unspecified; Z98.890 Other specified postprocedural states; Z79.899 Other long term (current) drug therapy; I25.2 Old myocardial infarction; I25.10 Atherosclerotic heart disease of native coronary artery without angina pectoris; Z86.74 Personal history of sudden cardiac arrest; Z95.5 Presence of coronary angioplasty implant and graft; Z87.891 Personal history of nicotine dependence; K40.90 Unilateral inguinal hernia, without obstruction or gangrene, not specified as recurrent; I27.20 Pulmonary hypertension, unspecified; Z86.16 Personal history of COVID-19; Z82.49 Family history of ischemic heart disease and other diseases of the circulatory system; E87.6 Hypokalemia; N28.1 Cyst of kidney, acquired
CPT/HCPCS: 36415; 36600; 71045-TC; 71250-TC; 76700-TC; 80048-TC; 80076-TC; 80202-TC; 81001; 82962-TC; 83605-TC; 83735-TC; 83880; 84100-TC; 84484-TC; 85025-TC; 85730-TC; 86713; 86738; 87040-TC; 87081-TC; 87086-TC; 93307-TC; 97110-TC; 97116-TC; 97530-TC; C9803; G0378; J0456; J1100; J1650; J1956; J2543; J3370; J7030; J7050; J7060